=== PATIENT | female | born 1955 | race Caucasian/White ===

== ENCOUNTER 2017-08-06 10:16 | Emergency (ER) | payer BC ==
[~2017-08-06] VITALS: Ht 167.6 cm; Wt 93.0 kg
[~2017-08-06 10:16] MED LIST: ALEVE220 M1 PO; AMOXICILLIN500 MG PO; AMOXICILLIN875 MG PO; ASPIRIN LOW DOS81 MG PO; AUGMENTIN875TAB PO; BABY ASPIRIN81 MG PO; BACLOFEN10 MG PO; CALCIUM D- PO; CELEBREX200 MG OR; DEPO-MEDROL80 MG/ML IM; FLEXERIL5 M1 PO; FLONASE NASAL50 MCG; KEFLEX500 MG PO; LEVOTHYROXIN75 MC1 PO; LISINOPRIL5 MG PO; LORTAB5 PO; MEDDOSEPAK OR; MEDDOSEPAK PO; MULTI VITAMIN D1 TAB PO; MULTIVITAM10 OR; NAPROSYN500 MG PO; NAPROXEN500 MG PO; NASONEX50 MCG/AC; NEXIUM20 MG OR; NEXIUM40 M1 PO; PREMARIN VAG0.625 MG VA; PREMARIN25 MG VA; PROAIR HFA IN; SIMVASTATIN20 MG PO; SIMVASTATIN5 MG; SYNTHROID50 MCG OR; SYNTHROID75 MCG PO; SYNTHROID88 MCG PO; TIZANIDINE4 MG PO; VICODIN1 TAB PO; VITAMIN D32000 UNIT PO; ZYRTEC10 MG PO; [UNRECOGNIZED DRUG - SUPPLY] TOP
[2017-08-06] MEDS ORDERED: SYNTHROID88 MCG PO (10:46)
[2017-08-06] MEDS ORDERED: TRAMADOL HYDROC50 MG PO (13:29)
[2017-08-06] MEDS ORDERED: CYCLOBENZAPR5 MG PO (13:29)
[2017-08-06 13:40] VITALS: BP 157/95
== END 2017-08-06 13:52 | disposition home or self-care (01) | DRG 556 ==
LOC: ED 10:16
DX: M25.531 Pain in right wrist (principal); E03.9 Hypothyroidism, unspecified; J45.909 Unspecified asthma, uncomplicated; M19.90 Unspecified osteoarthritis, unspecified site; K21.9 Gastro-esophageal reflux disease without esophagitis

== ENCOUNTER 2018-05-02 09:58 | Day surgery (SDC) | payer BC ==
[~2018-05-02] VITALS: Ht 167.6 cm; Wt 88.5 kg
[~2018-05-02 09:58] MED LIST changes: +CYCLOBENZAPR5 MG PO; +TRAMADOL HYDROC50 MG PO
[2018-05-02 13:42] VITALS: BP 126/76
== END 2018-05-02 13:09 | disposition home or self-care (01) | DRG 392 ==
LOC: ENDO 09:58 → ORM 13:00 → ENDO 13:00
PROVIDERS: ATTEND Surgery
PROC: 0DB78ZX Excision of Stomach, Pylorus, Via Natural or Artificial Opening Endoscopic, Diagnostic (ICD-10-PCS; principal; 2018-05-02)
PROC: 0DBH8ZX Excision of Cecum, Via Natural or Artificial Opening Endoscopic, Diagnostic (ICD-10-PCS; 2018-05-02)
DX: K21.9 Gastro-esophageal reflux disease without esophagitis (principal); K44.9 Diaphragmatic hernia without obstruction or gangrene; K29.40 Chronic atrophic gastritis without bleeding; Q40.2 Other specified congenital malformations of stomach; Z12.11 Encounter for screening for malignant neoplasm of colon; K57.30 Diverticulosis of large intestine without perforation or abscess without bleeding; D12.0 Benign neoplasm of cecum; F51.01 Primary insomnia; E03.9 Hypothyroidism, unspecified; E78.5 Hyperlipidemia, unspecified

== ENCOUNTER 2018-07-26 08:25 | Emergency (ER) | payer OTHER, BC ==
[~2018-07-26] VITALS: Ht 167.6 cm; Wt 95.0 kg
[2018-07-26] MEDS ORDERED: FLEXERIL PO (09:20)
[2018-07-26] MEDS ORDERED: TORADOL PO (09:20)
[2018-07-26 09:38] VITALS: BP 128/88
== END 2018-07-26 09:47 | disposition home or self-care (01) | DRG 605 ==
LOC: ED 08:25
DX: S70.02XA Contusion of left hip, initial encounter (principal); S20.212A Contusion of left front wall of thorax, initial encounter; W01.0XXA Fall on same level from slipping, tripping and stumbling without subsequent striking against object, initial encounter; Y92.219 Unspecified school as the place of occurrence of the external cause

== ENCOUNTER 2018-08-02 13:34 | Emergency (ER) | payer OTHER, BC ==
[~2018-08-02] VITALS: Ht 167.6 cm; Wt 86.3 kg
[~2018-08-02 13:34] MED LIST changes: +FLEXERIL PO; +TORADOL PO
[2018-08-02 14:02] VITALS: BP 143/98
== END 2018-08-02 14:05 | disposition home or self-care (01) | DRG 605 ==
LOC: ED 13:34
PROC: 0HQFXZZ Repair Right Hand Skin, External Approach (ICD-10-PCS; principal; 2018-08-02)
DX: S61.411A Laceration without foreign body of right hand, initial encounter (principal); E03.9 Hypothyroidism, unspecified; W22.09XA Striking against other stationary object, initial encounter; Y92.89 Other specified places as the place of occurrence of the external cause; Y99.0 Civilian activity done for income or pay